=== PATIENT | female | born 2000 | race Caucasian/White ===

== ENCOUNTER 2021-12-12 13:41 | Emergency (ER) | payer MEDICAID ==
[~2021-12-12] VITALS: Ht 152.4 cm; Wt 54.4 kg
[2021-12-12 13:59] VITALS: BP 130/83
[2021-12-12] MEDS ORDERED: ONDANSETRON 4 MG/2 ML VIAL IVP ONE (14:15)
[2021-12-12] MEDS ORDERED: MORPHINE SULFATE 4 MG/ML SYR IVP ONE (14:15)
[2021-12-12 14:31] LABS: BASOPHILS % (AUTO) 0.3 % (0.0-2.0); EOSINOPHILS % (AUTO) 0.2 % (0.0-4.0); HEMATOCRIT 44.7 % (36-48); HEMOGLOBIN 15.6 g/dL (12.0-16.0); LYMPHOCYTES # (AUTO) 2.1 K/uL (2.5-16.5); LYMPHOCYTES % (AUTO) 17.3 % (20.5-51.1); MEAN CORPUSCULAR HEMOGLOBIN 31 pg (27-31); MEAN CORPUSCULAR HGB CONC 35 g/dL (33-37); MEAN CORPUSCULAR VOLUME 87.3 fL (80-94); MONOCYTES # (AUTO) 0.4 K/uL (0.8-1.0); MONOCYTES % (AUTO) 3.3 % (1.7-9.3); NEUTROPHILS # (AUTO) 9.6 K/uL (1.8-7.7); NEUTROPHILS % (AUTO) 78.9 % (42.2-75.2); PLATELET COUNT (AUTO) 368 K/uL (140-450); RED BLOOD CELL COUNT(AUTO) 5.12 MIL/uL (4.20-5.40); RED CELL DISTRIBUTION WIDTH 12.7 % (11.6-13.7); WHITE BLOOD COUNT (AUTO) 12.1 K/uL (4.8-10.8)
[2021-12-12 14:56] LABS: ALBUMIN 4.9 g/dL (3.4-5.0); ANION GAP 14.6 (8-16); CARBON DIOXIDE 24.1 mmol/L (21-32); CREATININE 0.7 mg/dL (0.6-1.3); POTASSIUM 3.7 mmol/L (3.5-5.1); TOTAL BILIRUBIN 2.8 mg/dL (0.0-1.0)
[2021-12-12] MEDS ORDERED: diphenhydrAMINE 50 MG/ML VIAL IVP ONE (15:45)
[2021-12-12] MEDS ORDERED: METOCLOPRAMIDE 10 MG/2 ML INJ VIAL IVP ONE (15:45)
--- NOTE | 2021-12-12 16:33 | NUR ---
21 y/o female, c/o abd pain, n/v/d for 6 days, pt was seen at pcp today and was referred to come here for pancreatitis. skin is pale/warm/dry. a&o x4, states she is unable to ambulate due to pain. lungs clear bl, heart rate even and tachy. pt denies dysuria, hematuria, urinary frequency or retention, or anyone sick in the household with the same symptoms. pt states pain is 10/10 at this time. patient positioned for comfort. hob elevated. bed down. ermd made aware of pt. pmh: asthma, chronic pancreatitis allergy: trazodone med: ibuprofen 600mg
--- NOTE | 2021-12-12 17:15 | NUR ---
[facility]
[2021-12-12] MEDS ORDERED: KETOROLAC 30 MG/ML VIAL IVP ONE (18:15)
[2021-12-12] MEDS ORDERED: HYDROcodone/APAP 5/325 MG 1 TAB TAB PO ONE (18:15)
[2021-12-12] MEDS ORDERED: BEN10 PO (18:20)
[2021-12-12 19:15] VITALS: BP 131/71
--- NOTE | 2021-12-12 19:15 | NUR ---
Patient discharged with v/s stable. Written and verbal after care instructions given. Patient alert, oriented and verbalized understanding of instructions. Wheel Chair Assisted with to car. All questions addressed prior to discharge. ID band removed. Patient advised to follow up with PMD. Rx of Bentyl given. Opportunity to ask questions provided and answered. Work note handed to boyfriend.
[2021-12-12 19:44] LABS: APPEARANCE,URINE CLEAR (CLEAR); BILIRUBIN,URINE NEGATIVE (NEGATIVE); BLOOD, URINE TRACE-I (NEGATIVE); LEUKOCYTE ESTERASE ,URINE NEGATIVE (NEGATIVE); NITRITE, URINE NEGATIVE (NEGATIVE); UGLUCOSE 3+ (NEGATIVE)
[2021-12-12 19:46] LABS: COLOR,URINE AMBER (YELLOW)
[2021-12-12 19:47] LABS: RBC,URINE 0-5 /HPF (0-5); WBC,URINE NONE SEEN /HPF (0-5)
== END 2021-12-12 19:15 | disposition home or self-care (01) ==
LOC: MED 13:41
DX: K86.1 Other chronic pancreatitis (principal); J45.909 Unspecified asthma, uncomplicated; Z79.899 Other long term (current) drug therapy; Z88.8 Allergy status to other drugs, medicaments and biological substances
CPT/HCPCS: 36415; 74176; 80053; 81001; 81025; 83690; 85025; 96374; 96375; 99284; J1200; J1885; J2270; J2405; J2765

== ENCOUNTER 2022-11-27 07:05 | Emergency (ER) | payer MEDICAID ==
[~2022-11-27] VITALS: Ht 152.4 cm; Wt 49.9 kg
[~2022-11-27 07:05] MED LIST: BEN10 PO
[2022-11-27 07:19] VITALS: BP 119/70
--- NOTE | 2022-11-27 07:25 | NUR ---
TO BED 11 FOLLOWING TRIAGE AFTER OBTAINING UA
--- NOTE | 2022-11-27 07:31 | NUR ---
22 yo/f presents to ED w c/o possible uti d/t experiencing vaginal and groin itching, urinary burning, and urinary frequency, +vaginal pain 4/10 burning like, + white paste like vaginal dishcarge, +n/v x2 episodes. pt reports these symptoms have been on and off since june but worsened today. pt reports hx of yeats infections. pt on nexplanon. no fevers, or diahhrea, abdominal pain pmh: chronic pancreatitis, aathma, anxiety disorder allergies: trazadone
[2022-11-27 07:54] LABS: APPEARANCE,URINE CLEAR (CLEAR); BILIRUBIN,URINE NEGATIVE (NEGATIVE); BLOOD, URINE TRACE-I (NEGATIVE); COLOR,URINE YELLOW (YELLOW); LEUKOCYTE ESTERASE ,URINE NEGATIVE (NEGATIVE); NITRITE, URINE NEGATIVE (NEGATIVE); UGLUCOSE 3+ (NEGATIVE)
[2022-11-27 08:07] LABS: WBC,URINE 0-5 /HPF (0-5)
[2022-11-27] MEDS ORDERED: KETOROLAC 15 MG/ML VIAL IM ONE (08:50)
--- NOTE | 2022-11-27 08:50 | NUR ---
Female Help Desk Engineer accompanied female patient for Pelvic Exam. wet mount collected and sent to lab.
[2022-11-27] MEDS ORDERED: ACETAMINOPHEN 325 MG TAB PO ONE (08:55)
[2022-11-27 09:30] LABS: BASOPHILS % (AUTO) 0.3 % (0.0-2.0); EOSINOPHILS # (AUTO) 0.1 K/uL (0-0.4); EOSINOPHILS % (AUTO) 0.7 % (0.0-4.0); HEMATOCRIT 39.7 % (36-48); LYMPHOCYTES # (AUTO) 2.3 K/uL (2.5-16.5); LYMPHOCYTES % (AUTO) 22.6 % (20.5-51.1); MEAN CORPUSCULAR HEMOGLOBIN 30 pg (27-31); MEAN CORPUSCULAR HGB CONC 35 g/dL (33-37); MEAN CORPUSCULAR VOLUME 85.6 fL (80-94); MONOCYTES # (AUTO) 0.5 K/uL (0.8-1.0); MONOCYTES % (AUTO) 4.5 % (1.7-9.3); NEUTROPHILS # (AUTO) 7.3 K/uL (1.8-7.7); NEUTROPHILS % (AUTO) 71.9 % (42.2-75.2); PLATELET COUNT (AUTO) 318 K/uL (140-450); RED BLOOD CELL COUNT(AUTO) 4.64 MIL/uL (4.20-5.40); RED CELL DISTRIBUTION WIDTH 12.9 % (11.6-13.7); WHITE BLOOD COUNT (AUTO) 10.1 K/uL (4.8-10.8)
[2022-11-27 09:33] LABS: ALBUMIN 4.1 g/dL (3.4-5.0); ANION GAP 10.5 (8-16); CARBON DIOXIDE 30.9 mmol/L (21-32); CREATININE 0.6 mg/dL (0.6-1.3); POTASSIUM 4.4 mmol/L (3.5-5.1); TOTAL BILIRUBIN 0.8 mg/dL (0.0-1.0)
[2022-11-27] MEDS ORDERED: MICO15CR VG (10:19)
[2022-11-27 10:30] VITALS: BP 117/89
--- NOTE | 2022-11-27 10:31 | NUR ---
Patient discharged with v/s stable. Written and verbal after care instructions given and explained. Patient alert, oriented and verbalized understanding of instructions. Ambulatory with steady gait. All questions addressed prior to discharge. ID band removed. Patient advised to follow up with PMD. Rx of monistat given. Patient educated on indication of medication including possible reaction and side effects. Opportunity to ask questions provided and answered.
== END 2022-11-27 10:28 | disposition home or self-care (01) ==
LOC: MED 07:05
DX: R30.0 Dysuria (principal); R73.9 Hyperglycemia, unspecified; B37.31 Acute candidiasis of vulva and vagina; R81 Glycosuria; Z79.899 Other long term (current) drug therapy
CPT/HCPCS: 36415; 80053; 81001; 81025; 83690; 85025; 87210; 87491; 99284; J1885

== ENCOUNTER 2022-12-06 14:01 | Emergency (ER) | payer MEDICAID ==
[~2022-12-06] VITALS: Ht 152.4 cm; Wt 48.5 kg
[~2022-12-06 14:01] MED LIST changes: +MICO15CR VG
[2022-12-06 14:24] VITALS: BP 150/113
[2022-12-06] MEDS ORDERED: BACITRACIN OINT 500 UNITS/GM PKT TP ONE ×2 (15:20→17:06)
[2022-12-06] MEDS ORDERED: LIDOCAINE MPF 1% 10 MG/ML VIAL INJ ONE (15:20)
[2022-12-06] MEDS ORDERED: LIDOCAINE MPF 1% 10 ML ONE (16:22)
[2022-12-06] MEDS ORDERED: ACET-10509 PO (17:02)
[2022-12-06] MEDS ORDERED: BACI28.43 TP (17:02)
--- NOTE | 2022-12-06 17:13 | NUR ---
R BIG TOE IRRIGATED, DRESSED WITH NON ADHERENT X 1. ORTHO SHOE GIVEN. + CMS.
--- NOTE | 2022-12-06 17:32 | NUR ---
Patient discharged with v/s stable. Written and verbal after care instructions given and explained. Patient verbalized understanding. Ambulatory with steady gait. All questions addressed prior to discharge. Advised to follow up with PMD. INGROWN TOE NAIL INST. STABLE FOR D/C
== END 2022-12-06 17:30 | disposition home or self-care (01) ==
LOC: MED 14:01
DX: L60.0 Ingrowing nail (principal); J45.909 Unspecified asthma, uncomplicated; Z79.899 Other long term (current) drug therapy
CPT/HCPCS: 11730; 99284; J2001

== ENCOUNTER 2024-02-20 19:22 | Emergency (ER) | payer MEDICAID ==
[~2024-02-20] VITALS: Ht 152.4 cm; Wt 49.9 kg
[~2024-02-20 19:22] MED LIST changes: +ACET-10509 PO; +BACI28.43 TP
[2024-02-20 19:35] VITALS: BP 132/82; PULSE 101; RESP 21; TEMP 99.6; O2SAT 98
[2024-02-20] MEDS: HYDROcodone/APAP 5/325 MG 1 TAB TAB PO ONE (20:46)
[2024-02-20] MEDS ORDERED: ACET-10509 PO (21:40)
[2024-02-20] MEDS ORDERED: ACET-8905 PO (21:51)
== END 2024-02-20 21:54 | disposition home or self-care (01) ==
LOC: MED 19:22
DX: M25.531 Pain in right wrist (principal); M79.641 Pain in right hand; M79.661 Pain in right lower leg; J45.909 Unspecified asthma, uncomplicated; Z79.899 Other long term (current) drug therapy; Z88.8 Allergy status to other drugs, medicaments and biological substances; Z88.6 Allergy status to analgesic agent
CPT/HCPCS: 73110; 73130; 73562; 73590; 99284

== ENCOUNTER 2024-02-23 18:28 | Emergency (ER) | payer MEDICAID ==
[~2024-02-23] VITALS: Ht 152.4 cm; Wt 49.9 kg
[~2024-02-23 18:28] MED LIST changes: +ACET-8905 PO
[2024-02-23 18:43] VITALS: BP 113/64; PULSE 76; RESP 17; TEMP 98.8; O2SAT 97
== END 2024-02-23 20:05 | disposition home or self-care (01) ==
LOC: MED 18:28
DX: S63.501A Unspecified sprain of right wrist, initial encounter (principal); J45.909 Unspecified asthma, uncomplicated; Z79.899 Other long term (current) drug therapy; Z88.8 Allergy status to other drugs, medicaments and biological substances; Z88.6 Allergy status to analgesic agent; W05.1XXA Fall from non-moving nonmotorized scooter, initial encounter; Y93.89 Activity, other specified; Y92.410 Unspecified street and highway as the place of occurrence of the external cause; Y99.8 Other external cause status
CPT/HCPCS: 99283

== ENCOUNTER 2024-05-02 04:25 | Emergency (ER) | payer MEDICAID ==
[~2024-05-02] VITALS: Ht 152.4 cm; Wt 52.2 kg
[~2024-05-02 04:25] MED LIST changes: -ACET-10509 PO; +ACET500T99 PO
[2024-05-02 04:34] VITALS: BP 125/86; PULSE 104; RESP 18; TEMP 98; O2SAT 96
[2024-05-02 05:02] LABS: APPEARANCE,URINE CLEAR (CLEAR); BILIRUBIN,URINE NEGATIVE (NEGATIVE); BLOOD, URINE 3+ (NEGATIVE); COLOR,URINE YELLOW (YELLOW); LEUKOCYTE ESTERASE ,URINE 1+ (NEGATIVE); NITRITE, URINE NEGATIVE (NEGATIVE); PH,URINE 6.5 (5.0-9.0); PROTEIN,URINE 2+ (NEGATIVE); UGLUCOSE 3+ (NEGATIVE); UROBILINOGEN,URINE 0.2 EU/dL (0.2 - 1)
[2024-05-02 05:07] LABS: BACTERIA,URINE 10-30 (MOD) /HPF (None Seen); MUCUS,URINE 1+ /LPF (None Seen); RBC,URINE 0-5 /HPF (0-5); SQUAMOUS EPITHELIAL CELL,UR 0-3 (FEW) /LPF (0-3 (FEW)); WBC,URINE TOO MANY TO COUNT /HPF (0-5)
[2024-05-02] MEDS ORDERED: CEPH-588 PO (05:36)
[2024-05-02] MEDS: ONDANSETRON 4 MG ODT PO ONE (05:39)
[2024-05-02] MEDS: MORPHINE SULFATE 4 MG/ML SYR IM ONE (05:43)
[2024-05-02] MEDS ORDERED: HYDR-5071 PO (05:45)
[2024-05-02] MEDS ORDERED: ONDA-188 SL (05:51)
[2024-05-02 06:09] VITALS: BP 125/86; PULSE 104; RESP 18; TEMP 98; O2SAT 96
== END 2024-05-02 06:09 | disposition home or self-care (01) ==
LOC: MED 04:25
DX: N39.0 Urinary tract infection, site not specified (principal); K86.1 Other chronic pancreatitis; E11.9 Type 2 diabetes mellitus without complications; J45.909 Unspecified asthma, uncomplicated; Z79.899 Other long term (current) drug therapy; Z88.8 Allergy status to other drugs, medicaments and biological substances
CPT/HCPCS: 81001; 81025; 82948; 87086; 96372; 99283; J2270; Q0162